=== PATIENT | female | born 1945 | race Caucasian/White ===

== ENCOUNTER → 2018-04-06 | Outpatient (CLI) | payer MEDICARE ==
[~2018-04-06] MED LIST: ASPIRIN81 M1 PO; CIPRO500 MG PO; DIOVAN HCT PO; METOPROLOL SR50 MG PO; PREMARIN0.3 MG PO; PREMARIN0.45 MG PO; PROVERA2.5 MG PO
== END | disposition home or self-care (01) ==
LOC: MAMMO 16:42
DX: Z12.31 Encounter for screening mammogram for malignant neoplasm of breast (principal); R92.1 Mammographic calcification found on diagnostic imaging of breast

== ENCOUNTER → 2019-09-07 | Outpatient (CLI) | payer MEDICARE | END | disposition home or self-care (01) | LOC: MAMMO 08:00 | DX: Z12.31 Encounter for screening mammogram for malignant neoplasm of breast (principal) ==

== ENCOUNTER → 2023-07-30 | Outpatient (CLI) | payer MEDICARE | END | disposition home or self-care (01) | LOC: LAB 15:25 | PROVIDERS: ATTEND Internal Medicine Critical Care Medicine | DX: G47.33 Obstructive sleep apnea (adult) (pediatric) (principal); R53.83 Other fatigue; M25.50 Pain in unspecified joint; Z68.34 Body mass index [BMI] 34.0-34.9, adult ==